=== PATIENT | female | born 1935 | race Caucasian/White ===

== ENCOUNTER 2019-02-26 04:27 | Inpatient (IN) | payer OTHER, MEDICAID ==
[~2019-02-26] VITALS: Ht 157.5 cm; Wt 81.2 kg
[~2019-02-26 04:27] MED LIST: ALT5 PO; APR25 PO; ASPIR LOW81 MG PO; BENAZEPRIL HYDR40 M1 PO; CAT0.1 PO; D3-50001 TAB PO; GLIPIZIDE2.5 M1 PO; PEPCID20 MG; SYNTHROID0.075 MG PO; VENTOLIN H0.09 MG/A1 INH; VITAMIN B-121000 MC2 PO
--- NOTE | 2019-02-26 04:57 | NUR ---
PT C/O SOB AND PRODUCTIVE COUGH X2 DAY. PT STS "I FEEL LIKE I HAVE SOMETHING IN MY THROAT, AND I HAVE A TINY HOLE BREATHING AROUND IT." PT REPORTS THAT THE SOB GETS WORSE W/ EXERTION, AND NOTHING MAKES IT BETTER. PT REPORTS NO OTHER COMPLAINTS. PT PLACED ON CONTINUOUS PULSE OX, RESPS E/U. PT REPORTS NO OTHER COMPLAINTS. PT DENIES CHEST PAIN, FEVER/CHILLS. NAD NOTED AT THIS TIME. WILL CONTINUE TO MONITOR. AWAITNG MSE.
--- NOTE | 2019-02-26 05:30 | NUR ---
X-RAY AT BEDSIDE
--- NOTE | 2019-02-26 05:32 | NUR ---
PT DENIES CHEST PAIN AT THIS TIME. PER MD, HOLD OFF ON NITRO ADMINISTRATION AT THIS TIME.
--- NOTE | 2019-02-26 05:33 | NUR ---
PT STS THAT SHE IS ALLERGIC TO THE ADHESIVE, REFUSED TO KEEP CARDIAC LEADS ON FOR EXTENDED MONITORING
[2019-02-26 05:44] LABS: BASOPHIL % 0.5 % (0-2); PLATELET COUNT 160 x10^3mcL (130-400); RED CELL DISTRIBUTION WIDTH 13.8 % (11.5-14.5)
[2019-02-26 05:57] LABS: CALCIUM 8.4 mg/dL (8.5-10.1); CARBON DIOXIDE 23.4 mmol/L (21-32); CHLORIDE SERUM 104 mmol/L (98-107); GLUCOSE SERUM 116 mg/dL (74-106); POTASSIUM SERUM 3.9 mmol/L (3.5-5.1); SODIUM SERUM 139 mmol/L (136-145)
[2019-02-26 06:05] LABS: ALKALINE PHOSPHATASE 76 U/L (46-116); ALT/SGPT 22 U/L (14-59); AST/SGOT 10 U/L (15-37); BILIRUBIN TOTAL 0.3 mg/dL (0.20-1.00); LIPASE 249 IU/L (73-393); TOTAL PROTEIN, SERUM 6.5 g/dL (6.4-8.2)
[2019-02-26 06:06] LABS: ALBUMIN 3.3 g/dL (3.4-5.0)
--- NOTE | 2019-02-26 06:15 | NUR ---
PT C/O 8/10 CHEST PAIN. PER MD, GIVE NITRO ORDERED
--- NOTE | 2019-02-26 06:17 | NUR ---
NITRO 1/3 ADMINISTERED. VITALS DOCUMENTED. WILL CONTINUE TO MONITOR AT BEDSIDE
--- NOTE | 2019-02-26 06:23 | NUR ---
PT STS THAT SHE DOES NOT HAVE ANYMORE CHEST PAIN AFTER 1/3 NITRO ADMIN. PT IS REFUSING MORE NITRO AT THIS TIME. WILL REASSESS.
--- NOTE | 2019-02-26 07:00 | NUR ---
REPORT GIVEN TO LYNN DICKSON
--- NOTE | 2019-02-26 07:05 | NUR ---
REPORT RECEIVED FROM BRITNI DICKSON. PT AAOX4 NO DISTRESS PT ADVISED OF REASON TO HAVE CM ON PT AGREED. VSS SINUS JEAN AT BEDSIDE WILL CONTINUE TO MONITOR.
--- NOTE | 2019-02-26 08:20 | NUR ---
PT. TO RESTROOM VIA WHEELCHAIR, WITH ASSISTANCE, PT. PLACED IN BED, ON BURGLAR ALARM OPERATOR, DENIES CHEST PAIN, DENIES SOB, NO ACUTE DISTRESS NOTED, HEART RATE 49-50. PT. STATES THAT HER HER BASELINE. MADE AWARE. WILL CONTINUE TO MONITOR.
--- NOTE | 2019-02-26 09:00 | NUR ---
PT REPOSISITONED LYING ON L SIDE AT THIS TIME FOR COMFORT. PT REMAINS ON FULL CM WILL CONTINUE TO MONITOR FREE OF CP AND OR SOB. NO FURTHER ORDERS AT THIS TIME
--- NOTE | 2019-02-26 09:26 | NUR ---
AT BEDSIDE DISCUSSIG ADMITTING PT. TO HOSPITAL AND POC
--- NOTE | 2019-02-26 10:33 | NUR ---
CALLED REPORT TO NALDO DICKSON TELE AT 1037,
--- NOTE | 2019-02-26 10:54 | NUR ---
PT TRANSPORTED TO TELE FLOOR VIA GURNEY ON PORTABLE CM IN NO DISTRESS VSS BY EMILE DCIKSON AND TYLER EMT ACCOMPANYING PT. NALDO DICKSON RESUMING CARE OF PT
--- NOTE | 2019-02-26 11:00 | NUR ---
RECEIVED PATIENT FROM ER AT THIS TIME. PATIENT ABLE TO AMBULATE FROM GURNEY TO BED WITH MINIMAL ASSISTANCE. A/O X4 AND ABLE TO MAKE NEEDS KNOWN. BREATHING EVEN AND UNLABORED. PATIENT C/O SHORTNESS OF BREATH. TELE MONITOR [address] PATIENT DENIES CHEST PAIN/PRESSURE AT TIME. PATIENT DENIES ABD PAIN, NAUSEA, VOMITING AT THIS TIME. VOIDS FREELY WITH NO C/O BURNING/DISCOMFORT AT THIS TIME. SKIN CLEAN AND INTACT. IV PATENT AND INTACT. ALL QUESTIONS AND CONCERNS ADDRESSED. ALL NEEDS ATTENDED TO. WILL CONTINUE TO MONITOR
[2019-02-26 12:32] VITALS: BP 185/59
--- NOTE | 2019-02-26 12:45 | NUR ---
PATIENT SITTING UP IN BED EATING LUNCH AT THIS TIME. PATIENT TOLERATING DIET WELL. NO APPARENT DISTRESS OR DISCOMFORT NOTED. ALL NEEDS ATTENDED TO. WILL CONTINUE TO MONITOR
[2019-02-26 13:30] VITALS: BP 127/42
[2019-02-26 14:00] VITALS: BP 127/42
[2019-02-26 15:44] LABS: microscopic required? YES; urine erythrocyte NEGATIVE (NEGATIVE)
[2019-02-26 15:55] LABS: CREATININE UR 20.5 mg/dL
[2019-02-26 16:52] VITALS: BP 184/50
--- NOTE | 2019-02-26 17:05 | NUR ---
REPORTED TO CANDICE MCCARTHY AT THIS TIME PATIENT BLOOD PRESSURE 184/50 AT THIS TIME. PER CANDICE MCCARTHY, SHE WILL TALK TO DR MATTSON REGARDING BLOOD PRESSURE MEDICATION ORDERS. AWAITING ORDERS AT THIS TIME. WILL CONTINUE TO MONITOR
--- NOTE | 2019-02-26 18:01 | NUR ---
PATIENT SITTING UP IN BED EATING DINNER AT THIS TIME. PATIENT TOLERATING DIET FAIRLY. NO APPARENT DISTRESS OR DISCOMFORT NOTED. ALL NEEDS ATTENDED TO. WILL CONTINUE TO MONITOR
[2019-02-26 18:28] VITALS: BP 168/60
--- NOTE | 2019-02-26 18:57 | NUR ---
PATIENT RESTING COMFORTABLY IN BED AT THIS TIME. NO APPARENT DISTRESS OR DISCOMFORT NOTED. IV PATENT AND INTACT. ALL QUESTIONS AND CONCERNS ADDRESSED. ALL NEEDS ATTENDED TO. SAFETY PRECAUTIONS MAINTAINED. WILL ENDORSE ALL CARE TO COMPENSATION SPECIALIST NURSE
--- NOTE | 2019-02-26 19:20 | NUR ---
RECIEVED PT RESTING IN BED WITH NO ACUTE DISTRESS FROM DAY SHIFT RANDOLPH HITCHCOCK, PT IS A/OX4 WITH NO COMPLAINTS OF WILSON OR DIZZINESS, ASSESSMENT PERFORMED AT THIS TIME, PT DENIES PAIN, PT IS ON ROOM AIR AND DENIES ANY SOB, IV TO THE RAC SALINE LOCKED. SAFETY PRECAUTIONS IN PLACE, TELE 18 SB WILL CONTINUE TO MONITOR
--- NOTE | 2019-02-26 19:30 | NUR ---
RECIEVED PT FROM DAY NURSE MARIA DEL CARMEN, ASSESSMENT PERFORMED AT THIS TIME, PT DENIES PAIN OR SOB AT THIS TIME, PT IS A/OX4, DENIES WILSON OR DIZZINESS, PT SPEAKS CLEARLY AND ABLE TO MAKE NEEDS KNOWN, PT IS IRRITATED AND RESSISTANT TO CARE AT THIS TIME, SAFETY PRECAUTIONS IN PLACE, WILL CONTINUE TO MONITOR
--- NOTE | 2019-02-26 20:15 | NUR ---
PT REFUSING PICC NURSE TO ADJUST PICC LINE
--- NOTE | 2019-02-26 20:25 | NUR ---
TALKED TO PATIENT AND PATIENT AGREED TO ALLOW PICC NURSE TO ADJUST PICC LINE, PICC NURSE ADJUSTED PICC LINE AND XRAY CALLED TO CHECK FOR PLACEMENT.
[2019-02-26 20:52] VITALS: BP 153/52
--- NOTE | 2019-02-26 21:10 | NUR ---
CONTACTED DR VALVERDE ABOUT VERIFYING PICC TO AUTHORIZE FOR USE, SAID IT WAS OK TO HOLD PRILOSEC SINCE NO OTHER LINE IS PLACED AND PT REFUSING IV INSERTION. DR VALVERDE SAID SHE WITH CHECK TO SEE IF ITS OK TO USE PICC
--- NOTE | 2019-02-26 22:27 | NUR ---
DR VALVERDE OKAYED USE OF PICC EVEN THOUGH XRAY IMPRESSION RECOMENDED TO ADVANCE PICC 25CM
--- NOTE | 2019-02-26 23:55 | NUR ---
PT RESTING IN BED WITH NO ACUTE DISTRESS, PT RESPIRATIONS EVEN AND UNLABORED, ALL NEEDS ATTENDED TO SAFETY PRECAUTIONS IN PLACE, WILL CONTINUE TO MONITOR
--- NOTE | 2019-02-27 02:00 | NUR ---
PT PULLED OUT IV AND STARTED BLEEDING, CLEANED AND APPLIED PRESSURE AND THEN APPLIED CLEAN GAUZE AND TAPED, RESTARTED IV TO THE RIGHT HAND, 22 G FLUSHES WELL, EDUCATED PATIENT TO BE MINDFUL OF IV, SAFETY PRECAUTIONS IN PLACE, WILL CONTINUE TO MONITOR
--- NOTE | 2019-02-27 03:40 | NUR ---
PT RESTING IN BED WITH EYES CLOSED, EASILY AROUSABLE TO VERBAL STIMULI ,RESPIRATIONS EVEN AND UNLABORED SAFETY PRECAUTIONS IN PLACE, WILL CONTINUE TO MONITOR
--- NOTE | 2019-02-27 05:16 | NUR ---
PT RESTED AND HAD NO COMPLAINTS OF PAIN OR SOB THROUGH THE NIGHT, PT WAS OFF RA THROUGH EVENING AND RESPIRATIONS WERE EVEN AND UNLABORED AND REPORTED NO SOB WHILE ON RA. PT ACCIDENTALLY REMOVED IV AND I REPLACED WITH A NEW ONE IN THE RIGHT HAND 22G, SAFETY PRECAUTIONS WERE MAINTAINED AND ALL NEEDS WERE ATTENDED TO, WILL CONTINUE TO MONITOR AND ENDORSE CARE
[2019-02-27 05:34] VITALS: BP 160/65
[2019-02-27 06:07] LABS: BASOPHIL % 0.4 % (0-2); PLATELET COUNT 157 x10^3mcL (130-400); RED CELL DISTRIBUTION WIDTH 13.7 % (11.5-14.5)
[2019-02-27 06:30] LABS: CALCIUM 8.5 mg/dL (8.5-10.1); CARBON DIOXIDE 25.4 mmol/L (21-32); CHLORIDE SERUM 102 mmol/L (98-107); CREATININE SERUM 2.1 mg/dL (0.6-1.0); GLUCOSE SERUM 114 mg/dL (74-106); POTASSIUM SERUM 3.9 mmol/L (3.5-5.1); SODIUM SERUM 140 mmol/L (136-145)
--- NOTE | 2019-02-27 08:00 | NUR ---
SHIFT ASSESSMENT DONE. PATIENT A/A/OX4; CLEAR SPEECH. AMBULATED INDEPENDENTLY. TELE#18; SB; HR= 58; DENIED CHEST PAIN. C/O SNEEZING AND COUGHING. BREATHING SOUND DIMINISHED GLENDY BASES. O2 SAST 94% ON RA. IMPROVED TO 96% ON 2L VIA N/C. RT PROTOCOL. IVHL'D TO R HAND. IV PATENT AND SITE CLEAN. SCD TO BLE. CALL LIGHT IN REACH.
[2019-02-27 08:41] VITALS: BP 135/48
--- NOTE | 2019-02-27 09:12 | NUR ---
DR. MATTSON SAW PATIENT AND REVIEWED PATIENT'S V/S. B/P = 135/48; P=60. DR. MATTSON OK TO GIVE LASIX 20MG IVP.
--- NOTE | 2019-02-27 12:44 | NUR ---
DR. HYMAN CAME TO SEE PATIENT. NEW ORDER WRITTEN.
[2019-02-27 12:58] VITALS: BP 115/47
[2019-02-27 16:40] VITALS: BP 141/43
--- NOTE | 2019-02-27 19:30 | NUR ---
PT RESTING IN BED AT BEDSIDE. PT AOX4, REPORTS MINIMAL WILSON/DIZZINZESS. TP EDUCATED ON THE S/E OF MEDICATION, INFORMED PT TO USE CALL LIGHT FOR ASSISTANCE TO ENSURE PT REMAINS SAFE, RISE SLOWLY FROM HERIZONTAL POSITION, DANGLING FEET PRIOR TO RISING, PT VERBALIZES UNDERSTANDING. WILL CONTINUE TO REINFORCE. PT VERBALIZES UNDERSTANDING. TELE #18, SB. DENIES CP. PULSES PALPABLE BILAT, TRACE EDEMA. PT ON LASIX. RESP EVEN AND UNLABORED ON RA, DENIES SOB. DIM BILAT BASES. ABD SOFT, ROUND, DENIES ABD PAIN. VOIDS FREELY, DENIES DYSURIA. AMBULATORY, PT KNOWS TO USE CALL LIGHT FOR ASSISTANCE. SKIN INTACT. IV SITE TO THE RH HAND PATENT, SALINE LOCKED AT THIS TIME. ALL COMFORT AND SAFETY MEASURES PROVIDED FOR, CALL LIGHT WITHIN REACH, BED IN LOWEST POSITION, WILL CONTINUE TO MONITOR.
[2019-02-27 20:57] VITALS: BP 128/49
[2019-02-28 04:56] VITALS: BP 150/48
--- NOTE | 2019-02-28 05:05 | NUR ---
PT RESTED IN INTERVALS DURING SHIFT, NO ACUTE CHANGES OCCURRING OVERNIGHT. PT DENIES WILSON/DIZZINESS THIS MORNING, PT DENIES SOB/CP. PT HR REMAINS SB-NSR DURING SHIFT. TOLERATING HYDRALAZINE TAB WELL. PT DENIES N./V/D DURING SHIFT. GAIT SLWO/STEADY. IV SITE REMAINS PATENT TO RT HAND SALINE LOCKED. ALL COMFORT AND SAFETY MEASURES PROVIDED FOR, CALL LIGHT WITHIN REACH, BED IN LOWEST POSITION, WILL CONTINUE TO MONITOR.
[2019-02-28 07:26] LABS: CALCIUM 8.6 mg/dL (8.5-10.1); CARBON DIOXIDE 24.5 mmol/L (21-32); CHLORIDE SERUM 99 mmol/L (98-107); CREATININE SERUM 2.6 mg/dL (0.6-1.0); GLUCOSE SERUM 136 mg/dL (74-106); POTASSIUM SERUM 3.7 mmol/L (3.5-5.1); SODIUM SERUM 137 mmol/L (136-145)
--- NOTE | 2019-02-28 07:30 | NUR ---
PT IS AAOX4. RESP EVEN AND UNLABORED. LUNG SOUNDS DIMINISHED BILATERAL LOWER BASES. ON R/A. NO COUGH OR SOB NOTED AT THIS TIME. TELE [address] READING NSR WITH DEPRESSED [address]. PT IS NOTED WITH INTERMITTENT SINUS JEAN. PT DENIES C/P PRESSURE AND PALPITATIONS AT THIS TIME. ABDOMEN IS SOFT, ROUND, NONDISTENDED, NONTENDER. BOWEL SOUNDS ACTIVE X4 QUADS. PT DENIES N/V/D AT THIS TIME. PERIPHERAL PULSES MODERATELY PALPABLE. NO EDEMA NOTED. IV CATH N/S LOCKED TO R HAND. NO S/S OF INFECTION AND INFILTRATION NOTED. PT DENIES PAIN AND DISCOMFORT AT THIS TIME. CALL LIGHT WITHIN REACH. BED IN LOW POSITION.
[2019-02-28 09:35] LABS: BASOPHIL % 0.6 % (0-2); PLATELET COUNT 147 x10^3mcL (130-400); RED CELL DISTRIBUTION WIDTH 13.4 % (11.5-14.5)
[2019-02-28 09:47] VITALS: BP 125/44
--- NOTE | 2019-02-28 10:15 | NUR ---
PT HAS C/O MILD SOB AND UPPER ABDOMINAL PAIN AND PRESSURE THAT FEELS LIKE A BELT SQUEEZING HER, PAIN LEVEL INCREASED TO 7-8/10 AND THEN SUBSIDED TO 4/10. REPORTED TO FABIO BURGER NP THAT PT IS HAVING C/P. FABIO ORDERED NITRO 0.4MG PO PRN FOR PT. NITRO 0.4MG PO GIVEN. PT VERBALIZED RELIEF OF PAIN WITHIN 5 MINUTES OF TAKING THE NITRO MED. ROUTINE MEDS GIVEN AND TOLERATED WELL. B/P 125/44, HR 60. RESP EVEN AND UNLABORED. NO SOB NOTED AT THIS TIME. WILL CONTINUE TO MONITOR.
--- NOTE | 2019-02-28 10:28 | NUR ---
PT HAS C/O CONSTIPATION. PT STATED SHE HAS A VERY SMALL BOWEL MOVEMENT EARLIER BUT IT WAS HARD. REPORTED TO FABIO BURGER NP. A NEW ORDER OF M.O.M. WILL BE ORDERED.
--- NOTE | 2019-02-28 11:33 | NUR ---
PT HAS C/O CHEST PRESSURE RADIATING TO L SIDE AND TO BACK NITROGLYCERINE 0.4MG SUBLINGUAL GIVEN. PT STATES THAT THE PAIN HAS SUBSIDED BUT IS 5/10 AT THIS TIME. B/P 165/45 (133), HR 64. FABIO BURGER, PRODUCTION SUPERINTENDENT MADE AWARE OF ALL NEW FINDINGS. AN EDG HAS BEEN ORDERED. DR. CULLEN IN ROOM SPEAKING WITH PT ENCOURAGING TO USE BIPAP AT NIGHT TO HELP WITH HEART ISSUES. PT IS RECEIVING ECG AT THIS TIME. CALL LIGHT WITHIN REACH.
--- NOTE | 2019-02-28 11:47 | NUR ---
PT HAS C/O ITCHING WHERE TELE MONITOR LEADS ARE PLACED. LEADS REMOVED AND PLACE IN DIFFERENT LOCATION. NO REDNESS NOTED. BENEDRYL 25MG PO GIVEN FOR ITCHING. FABIO BURGER NP IS AWARE. TWO ECG WERE TAKEN AND NEITHER SHOWED A BIJU IN THE PT'S HEART RHTHYM. PT AND MADE AWARE.
--- NOTE | 2019-02-28 12:15 | NUR ---
BLOOD SUGAR 103, NO INSULIN INDICATED. PT DENIES ANY PAIN OR DISCOMFORT AT THIS TIME. RESP EVEN AND UNLABORED. NO DISTRESS NOTED AT THIS TIME. CALL LIGHT WITHIN REACH. SITTING AT BEDSIDE. WILL CONTINUE TO MONITOR.
--- NOTE | 2019-02-28 12:30 | NUR ---
REASSED PT B/P IN NOW AT 135/47. PT DENIES PAIN AND DISCOMFORT. RESP EVEN AND UNLABORED. NO SOB OR RESP DISTRESS NOTED. CALL LIGTH WITHIN REACH.
--- NOTE | 2019-02-28 13:15 | NUR ---
ROUTINE MEDICATION GIVEN. B/P 128/50 (97), HR 60. RESP EVEN AND UNLABORED. PT DENIES C/P PAIN, PRESSURE AND PALPITATIONS. DENIES SOB. CALL LIGHT WITHIN REACH.
--- NOTE | 2019-02-28 13:24 | NUR ---
M.O.M. PO GIVEN FOR C/O CONSTIPATION. EXTRA FLUIDS ENCOURAGED. NO DISTRESS NOTED. CALL LIGHT WITHIN REACH.
[2019-02-28] MEDS ORDERED: HYDRALAZINE HCL25 MG PO (14:19)
[2019-02-28] MEDS ORDERED: LASIX20 MG PO (14:20)
[2019-02-28 16:42] VITALS: BP 160/52
[2019-02-28 16:45] VITALS: BP 125/44
--- NOTE | 2019-02-28 18:16 | NUR ---
PT DISCHARGED TO HOME IN NO DISTRESS. DISCHARGE INSTRUCTIONS REVIEWED. ALL FORMS SIGNED AND ALL QUESTIONS ANSWERED. RX GIVEN TO PT. VS:T 98.9F, HR 60, RR 10, B/P 125/44. PT DENIES PAIN AT TIME OF DISCHARGE. IV CATH TO R HAND REMOVED WITH CATH INTACT, NO S/S OF INFECTION OR INFILTRATION NOTED. COVERED WITH GAUZE AND BANDAID. ALL PERSONAL BELONGINGS TAKEN HOME. TELEMONITOR 18 REMOVED AND RETURNED TO TITLE EXAMINER.
== END 2019-02-28 17:12 | disposition home or self-care (01) | DRG 291 ==
LOC: ED 04:27 → DU 09:38
PROVIDERS: Emergency Medicine; Internal Medicine Nephrology; ADMIT General Practice
DX: I13.0 Hypertensive heart and chronic kidney disease with heart failure and stage 1 through stage 4 chronic kidney disease, or unspecified chronic kidney disease (principal); N17.0 Acute kidney failure with tubular necrosis; I50.32 Chronic diastolic (congestive) heart failure; E66.2 Morbid (severe) obesity with alveolar hypoventilation; E11.22 Type 2 diabetes mellitus with diabetic chronic kidney disease; E11.65 Type 2 diabetes mellitus with hyperglycemia; N18.3 Chronic kidney disease, stage 3 (moderate); I16.0 Hypertensive urgency; E78.5 Hyperlipidemia, unspecified; E03.9 Hypothyroidism, unspecified; I25.10 Atherosclerotic heart disease of native coronary artery without angina pectoris; Z95.1 Presence of aortocoronary bypass graft; Z79.84 Long term (current) use of oral hypoglycemic drugs; Z91.14 Patient's other noncompliance with medication regimen
CPT/HCPCS: 82962; 94150; C9113; G0378; J1644; J1940; J7626; Q0092; Q0163

== ENCOUNTER 2020-06-09 14:43 | Emergency (ER) | payer OTHER ==
[~2020-06-09] VITALS: Ht 157.5 cm; Wt 79.4 kg
[~2020-06-09 14:43] MED LIST changes: +HYDRALAZINE HCL25 MG PO; +LASIX20 MG PO
[2020-06-09 14:52] VITALS: Ht 157.5 cm; Wt 79.4 kg
[2020-06-09 18:25] VITALS: BP 183/82
== END 2020-06-09 18:25 | disposition home or self-care (01) ==
LOC: ED 14:43
DX: S42.202A Unspecified fracture of upper end of left humerus, initial encounter for closed fracture (principal); I10 Essential (primary) hypertension; E11.9 Type 2 diabetes mellitus without complications; I13.0 Hypertensive heart and chronic kidney disease with heart failure and stage 1 through stage 4 chronic kidney disease, or unspecified chronic kidney disease; E11.22 Type 2 diabetes mellitus with diabetic chronic kidney disease; N18.30 Chronic kidney disease, stage 3 unspecified; I50.9 Heart failure, unspecified; Z88.5 Allergy status to narcotic agent; Z88.8 Allergy status to other drugs, medicaments and biological substances; W01.0XXA Fall on same level from slipping, tripping and stumbling without subsequent striking against object, initial encounter; Y93.89 Activity, other specified; Y92.89 Other specified places as the place of occurrence of the external cause; Y99.8 Other external cause status
CPT/HCPCS: J1940